=== PATIENT | male | born 2000 | race Caucasian/White ===

== ENCOUNTER 2023-03-09 12:34 | Inpatient (IN) | payer MEDICAID, OTHER ==
[~2023-03-09] VITALS: Ht 175.3 cm; Wt 70.3 kg
[2023-03-09 13:27] LABS: AMMONIA 52 umol/L (11-32); ETHANOL 15 MG/DL (0-10)
[2023-03-09 13:36] LABS: ALANINE AMINOTRANSFERASE 94 U/L (16-63); ALBUMIN 4.5 g/dL (3.4-5.0); ALKALINE PHOSPHATASE 111 U/L (50-136); ASPARTATE AMINOTRANSFERASE 123 U/L (15-37); BILIRUBIN,DIRECT 0.4 mg/dL (0.0-0.2); BILIRUBIN,TOTAL 1.3 mg/dL (0.2-1.0); CALCIUM 9.5 mg/dL (8.5-10.1); CARBON DIOXIDE 22 mmol/L (21-32); CHLORIDE 104 mmol/L (98-107); CREATININE 1.6 mg/dL (0.6-1.3); GLUCOSE 110 mg/dL (74-106); POTASSIUM 3.6 mmol/L (3.5-5.1); SODIUM SERUM 142 mmol/L (136-145); TOTAL PROTEIN, SERUM 8.2 g/dL (6.4-8.2); UREA NITROGEN, BLOOD 20 mg/dL (7-18)
[2023-03-09 13:41] LABS: ACETAMINOPHEN < 2.0 ug/mL (10-30); THYROID STIMULATING HORMONE 0.328 mIU/mL (0.358-3.740)
[2023-03-09 13:47] LABS: *BILIRUBIN,URIN NEGATIVE (NEGATIVE); *BLOOD, URINE 3+ (NEGATIVE); *CLARITY,URINE CLEAR (CLEAR); *COLOR,URINE YELLOW (YELLOW); *KETONES,URINE TRACE (NEGATIVE); *PROTEIN,URINE 1+ (NEGATIVE); LEUKOCYTE ESTERASE ,URINE NEGATIVE (NEGATIVE); NITRITE, URINE NEGATIVE (NEGATIVE); PH,URINE 5.5 (5.0-8.0); UGLUCOSE NEGATIVE (NEGATIVE)
[2023-03-09 14:06] LABS: BASOPHILS % (AUTO) 0.2 % (0.0-2.0); DIFFERENTIAL COMMENT 0; HEMOGLOBIN 16.3 g/dL (12.5-16.3); LYMPHOCYTES # (AUTO) 0.7 K/uL (0.8-4.8); LYMPHOCYTES % (AUTO) 3.7 % (20.5-51.5); MEAN CORPUSCULAR HEMOGLOBIN 29.2 uug (23.8-33.4); MEAN CORPUSCULAR HGB CONC 33 g/dL (32.5-36.3); MEAN CORPUSCULAR VOLUME 87.6 fL (73.0-96.2); MONOCYTES # (AUTO) 1.6 K/uL (0.1-1.30); MONOCYTES % (AUTO) 8.1 % (0.0-11.0); NEUTROPHILS # (AUTO) 16.9 K/uL (1.8-8.9); PLATELET COUNT (AUTO) 194 K/uL (152-348); WHITE BLOOD COUNT (AUTO) 19.2 K/uL (3.6-10.2)
[2023-03-09 14:12] LABS: *AMPHETAMINE, URINE NEGATIVE (NEGATIVE); *BARBITURATE, URINE NEGATIVE (NEGATIVE); *BENZODIAZEPINE, URINE POSITIVE (NEGATIVE); *CANNABINOID, URINE NEGATIVE (NEGATIVE); *COCCAINE, URINE NEGATIVE (NEGATIVE); *OPIATE, URINE NEGATIVE (NEGATIVE); *PHENCYCLIDINE SCREEN,URINE NEGATIVE (NEGATIVE)
[2023-03-09 14:21] LABS: FENTANYL, URINE NEGATIVE (NEGATIVE)
[2023-03-09 14:37] LABS: BACTERIA,URINE MODERATE /HPF (NONE SEEN); SQUAMOUS EPITHELIAL CELL,UR FEW /HPF (NONE SEEN); WBC,URINE 0-3 /HPF (0-3)
[2023-03-09 14:38] LABS: MUCUS,URINE MODERATE /LPF (0-FEW)
[2023-03-09] MEDS ORDERED: MAGNESIUM HYDROXIDE 30 ML LIQUID UDC PO PRN (18:15)
[2023-03-09] MEDS ORDERED: LORAZEPAM 2 MG/1 ML VIAL IV PRN (18:15)
[2023-03-09] MEDS ORDERED: ONDANSETRON 4 MG/2 ML VIAL IV PRN (18:15)
[2023-03-09] MEDS ORDERED: ACETAMINOPHEN 325 MG TABLET PO PRN (18:15)
[2023-03-09 20:20] VITALS: BP 125/55; TEMP 98.4; O2SAT 96
[2023-03-09] MEDS: MORPHINE SULFATE 2 MG/1 ML DISP.SYRIN IV PRN (22:36)
[2023-03-09] MEDS: ASPIRIN 81 MG TAB.CHEW PO ONE (22:43)
[2023-03-09] MEDS: IV NS 1000 ML 1,000 ML IV PRN ×2 (23:08→23:45)
[2023-03-10] VITALS: BP 119/61; TEMP 98.2; O2SAT 95
[2023-03-10 04:00] VITALS: BP 124/57; TEMP 99.2; O2SAT 96
[2023-03-10] MEDS ORDERED: LORAZEPAM 2 MG/1 ML VIAL IV PRN (05:30)
[2023-03-10 06:04] LABS: BASOPHILS % (AUTO) 0.2 % (0.0-2.0); HEMATOCRIT 42.3 % (36.7-47.1); HEMOGLOBIN 14.5 g/dL (12.5-16.3); LYMPHOCYTES # (AUTO) 1.3 K/uL (0.8-4.8); LYMPHOCYTES % (AUTO) 8.7 % (20.5-51.5); MEAN CORPUSCULAR HEMOGLOBIN 29.6 uug (23.8-33.4); MEAN CORPUSCULAR HGB CONC 34 g/dL (32.5-36.3); MEAN CORPUSCULAR VOLUME 86.5 fL (73.0-96.2); MONOCYTES # (AUTO) 1.5 K/uL (0.1-1.30); MONOCYTES % (AUTO) 9.9 % (0.0-11.0); NEUTROPHILS # (AUTO) 12.4 K/uL (1.8-8.9); NEUTROPHILS % (AUTO) 81.2 % (38.5-71.5); PLATELET COUNT (AUTO) 168 K/uL (152-348); RED BLOOD CELL COUNT(AUTO) 4.89 MIL/uL (4.06-5.63); RED CELL DISTRIBUTION WIDTH 13.7 % (12.1-16.2); WHITE BLOOD COUNT (AUTO) 15.2 K/uL (3.6-10.2)
[2023-03-10 06:26] LABS: DIFFERENTIAL COMMENT 1
[2023-03-10 06:32] LABS: ALANINE AMINOTRANSFERASE 126 U/L (16-63); ALBUMIN 3.5 g/dL (3.4-5.0); ALKALINE PHOSPHATASE 77 U/L (50-136); ASPARTATE AMINOTRANSFERASE 518 U/L (15-37); BILIRUBIN,DIRECT 0.3 mg/dL (0.0-0.2); BILIRUBIN,TOTAL 1.3 mg/dL (0.2-1.0); CALCIUM 8.5 mg/dL (8.5-10.1); CARBON DIOXIDE 25 mmol/L (21-32); CHLORIDE 104 mmol/L (98-107); CHOLESTEROL 120 mg/dL (<200); CREATININE 1.6 mg/dL (0.6-1.3); GLUCOSE 132 mg/dL (74-106); HDL CHOLESTEROL 54 mg/dL (40-60); MAGNESIUM 2.1 mg/dL (1.8-2.4); POTASSIUM 4.2 mmol/L (3.5-5.1); SODIUM SERUM 137 mmol/L (136-145); TOTAL PROTEIN, SERUM 6.6 g/dL (6.4-8.2); TRIGLYCERIDES 61 MG/DL (30-150); UREA NITROGEN, BLOOD 26 mg/dL (7-18)
[2023-03-10] MEDS: FOLIC ACID 1 MG TABLET PO ONE (09:36)
[2023-03-10] MEDS: THIAMINE HCL 100 MG TABLET PO ONE (09:36)
[2023-03-10 09:39] LABS: CREATINE KINASE, TOTAL > 14000 U/L (39-308)
[2023-03-10 14:11] LABS: FREE T4 (FREE THYROXINE) 1.07 ng/dL (0.76-1.46)
[2023-03-10] MEDS: levETIRAcetam 500 MG TABLET PO ONE (14:15)
[2023-03-10 14:24] LABS: FREE T4 (FREE THYROXINE) 1.35 ng/dL (0.76-1.46)
[2023-03-10 15:17] VITALS: BP 120/50; TEMP 98.5; O2SAT 100
[2023-03-10 16:00] VITALS: BP 128/94; TEMP 98.4; O2SAT 100
[2023-03-10 20:00] VITALS: BP 120/68; TEMP 98.4; O2SAT 100
[2023-03-10] MEDS: levETIRAcetam 500 MG TABLET PO SCH (21:03)
[2023-03-11] VITALS: BP 127/68; TEMP 98.7; O2SAT 100
[2023-03-11 04:00] VITALS: BP 122/68; TEMP 98.7; O2SAT 100
[2023-03-11 07:31] LABS: BASOPHILS % (AUTO) 0.3 % (0.0-2.0); DIFFERENTIAL COMMENT 1; EOSINOPHILS # (AUTO) 0.1 K/uL (0.0-0.7); EOSINOPHILS % (AUTO) 0.8 % (0.0-7.0); HEMATOCRIT 34.5 % (36.7-47.1); HEMOGLOBIN 11.8 g/dL (12.5-16.3); LYMPHOCYTES # (AUTO) 1.4 K/uL (0.8-4.8); LYMPHOCYTES % (AUTO) 17.8 % (20.5-51.5); MEAN CORPUSCULAR HEMOGLOBIN 29.7 uug (23.8-33.4); MEAN CORPUSCULAR HGB CONC 34 g/dL (32.5-36.3); MEAN CORPUSCULAR VOLUME 86.6 fL (73.0-96.2); MONOCYTES # (AUTO) 0.6 K/uL (0.1-1.30); MONOCYTES % (AUTO) 7.8 % (0.0-11.0); NEUTROPHILS # (AUTO) 5.6 K/uL (1.8-8.9); NEUTROPHILS % (AUTO) 73.3 % (38.5-71.5); PLATELET COUNT (AUTO) 128 K/uL (152-348); RED BLOOD CELL COUNT(AUTO) 3.98 MIL/uL (4.06-5.63); RED CELL DISTRIBUTION WIDTH 13.6 % (12.1-16.2); WHITE BLOOD COUNT (AUTO) 7.6 K/uL (3.6-10.2)
[2023-03-11 07:36] LABS: ALANINE AMINOTRANSFERASE 153 U/L (16-63); ALBUMIN 2.7 g/dL (3.4-5.0); ALKALINE PHOSPHATASE 61 U/L (50-136); ASPARTATE AMINOTRANSFERASE 681 U/L (15-37); BILIRUBIN,DIRECT 0.2 mg/dL (0.0-0.2); BILIRUBIN,TOTAL 0.7 mg/dL (0.2-1.0); CALCIUM 7.8 mg/dL (8.5-10.1); CARBON DIOXIDE 28 mmol/L (21-32); CHLORIDE 111 mmol/L (98-107); GLUCOSE 111 mg/dL (74-106); MAGNESIUM 1.8 mg/dL (1.8-2.4); PHOSPHOROUS 2.7 mg/dL (2.5-4.9); SODIUM SERUM 141 mmol/L (136-145); TOTAL PROTEIN, SERUM 5.1 g/dL (6.4-8.2); UREA NITROGEN, BLOOD 14 mg/dL (7-18)
[2023-03-11 08:18] VITALS: BP 129/72; TEMP 98.7; O2SAT 100
[2023-03-11 08:19] LABS: CREATINE KINASE, TOTAL > 14000 U/L (39-308)
[2023-03-11 11:06] VITALS: BP 111/61; TEMP 98.1; O2SAT 98
[2023-03-11 11:12] LABS: HEPATITIS B CORE AB, IgM Negative (Negative); HEPATITIS B CORE AB, TOTAL Negative (Negative); HEPATITIS B SURFACE AB, QUAL Non Reactive (.); HEPATITIS C VIRUS ANTIBODY Non Reactive (Non Reactive)
[2023-03-11] MEDS ORDERED: BENZOCAINE/MENTH/CETYLPYRD LOZENGE MM PRN (13:30)
[2023-03-11 14:35] VITALS: BP 123/70; TEMP 98; O2SAT 98
[2023-03-11 20:24] VITALS: BP 113/70; TEMP 98.3; O2SAT 100
[2023-03-12 06:48] VITALS: BP 114/54; TEMP 98; O2SAT 98
[2023-03-12 10:18] LABS: BASOPHILS % (AUTO) 0.3 % (0.0-2.0); EOSINOPHILS # (AUTO) 0.1 K/uL (0.0-0.7); HEMATOCRIT 35.2 % (36.7-47.1); HEMOGLOBIN 11.9 g/dL (12.5-16.3); LYMPHOCYTES # (AUTO) 1.5 K/uL (0.8-4.8); LYMPHOCYTES % (AUTO) 25.6 % (20.5-51.5); MEAN CORPUSCULAR HEMOGLOBIN 29.7 uug (23.8-33.4); MEAN CORPUSCULAR HGB CONC 34 g/dL (32.5-36.3); MEAN CORPUSCULAR VOLUME 87.8 fL (73.0-96.2); MONOCYTES # (AUTO) 0.4 K/uL (0.1-1.30); MONOCYTES % (AUTO) 7.7 % (0.0-11.0); NEUTROPHILS # (AUTO) 3.8 K/uL (1.8-8.9); NEUTROPHILS % (AUTO) 64.4 % (38.5-71.5); PLATELET COUNT (AUTO) 132 K/uL (152-348); RED BLOOD CELL COUNT(AUTO) 4.01 MIL/uL (4.06-5.63); RED CELL DISTRIBUTION WIDTH 13.5 % (12.1-16.2); WHITE BLOOD COUNT (AUTO) 5.8 K/uL (3.6-10.2)
[2023-03-12 10:45] LABS: DIFFERENTIAL COMMENT 1
[2023-03-12 11:03] LABS: ALANINE AMINOTRANSFERASE 204 U/L (16-63); ALBUMIN 2.8 g/dL (3.4-5.0); ALKALINE PHOSPHATASE 63 U/L (50-136); ASPARTATE AMINOTRANSFERASE 713 U/L (15-37); BILIRUBIN,TOTAL 0.9 mg/dL (0.2-1.0); CALCIUM 8.2 mg/dL (8.5-10.1); CARBON DIOXIDE 27 mmol/L (21-32); CHLORIDE 110 mmol/L (98-107); GLUCOSE 99 mg/dL (74-106); POTASSIUM 3.9 mmol/L (3.5-5.1); SODIUM SERUM 143 mmol/L (136-145); TOTAL PROTEIN, SERUM 5.5 g/dL (6.4-8.2); UREA NITROGEN, BLOOD 5 mg/dL (7-18)
[2023-03-12 11:10] VITALS: BP 148/55; TEMP 98.1; O2SAT 98
[2023-03-12 11:11] LABS: CREATINE KINASE, TOTAL > 14000 U/L (39-308)
[2023-03-12 16:00] VITALS: BP 125/76; TEMP 98.3; O2SAT 98
[2023-03-12 20:00] VITALS: BP 118/66; TEMP 98; O2SAT 98
[2023-03-13 04:00] VITALS: BP 119/68; TEMP 98.2; O2SAT 97
[2023-03-13 08:12] LABS: BASOPHILS % (AUTO) 0.5 % (0.0-2.0); EOSINOPHILS # (AUTO) 0.1 K/uL (0.0-0.7); EOSINOPHILS % (AUTO) 2.3 % (0.0-7.0); HEMATOCRIT 34.8 % (36.7-47.1); LYMPHOCYTES # (AUTO) 1.9 K/uL (0.8-4.8); LYMPHOCYTES % (AUTO) 32.1 % (20.5-51.5); MEAN CORPUSCULAR HEMOGLOBIN 29.8 uug (23.8-33.4); MEAN CORPUSCULAR HGB CONC 35 g/dL (32.5-36.3); MEAN CORPUSCULAR VOLUME 86.3 fL (73.0-96.2); MONOCYTES # (AUTO) 0.5 K/uL (0.1-1.30); NEUTROPHILS # (AUTO) 3.4 K/uL (1.8-8.9); NEUTROPHILS % (AUTO) 57.1 % (38.5-71.5); PLATELET COUNT (AUTO) 136 K/uL (152-348); RED BLOOD CELL COUNT(AUTO) 4.03 MIL/uL (4.06-5.63); RED CELL DISTRIBUTION WIDTH 13.4 % (12.1-16.2)
[2023-03-13 08:17] LABS: CARBON DIOXIDE 26 mmol/L (21-32); CHLORIDE 109 mmol/L (98-107); CREATININE 0.9 mg/dL (0.6-1.3); DIFFERENTIAL COMMENT 1; GLUCOSE 93 mg/dL (74-106); MAGNESIUM 1.5 mg/dL (1.8-2.4); POTASSIUM 3.4 mmol/L (3.5-5.1); SODIUM SERUM 143 mmol/L (136-145); UREA NITROGEN, BLOOD 7 mg/dL (7-18)
[2023-03-13 09:11] LABS: CREATINE KINASE, TOTAL > 14000 U/L (39-308)
[2023-03-13] MEDS: MAGNESIUM SULFATE/D5W 100 ML IV SCH ×2 (09:46→09:47)
[2023-03-13] MEDS: POTASSIUM CHLORIDE 20 MEQ POWDER PACKET PO ONE (09:46)
[2023-03-13 11:57] VITALS: BP 120/62; TEMP 97.7; O2SAT 98
[2023-03-13 16:00] VITALS: BP 121/69; TEMP 97.9; O2SAT 100
[2023-03-13 20:36] VITALS: BP 111/48; TEMP 97.9; O2SAT 99
[2023-03-14 05:48] VITALS: BP 117/64; TEMP 98.4; O2SAT 98
[2023-03-14 07:59] LABS: BASOPHILS % (AUTO) 0.6 % (0.0-2.0); EOSINOPHILS # (AUTO) 0.2 K/uL (0.0-0.7); EOSINOPHILS % (AUTO) 3.4 % (0.0-7.0); HEMATOCRIT 35.8 % (36.7-47.1); HEMOGLOBIN 12.5 g/dL (12.5-16.3); LYMPHOCYTES # (AUTO) 1.7 K/uL (0.8-4.8); LYMPHOCYTES % (AUTO) 30.3 % (20.5-51.5); MEAN CORPUSCULAR HEMOGLOBIN 29.9 uug (23.8-33.4); MEAN CORPUSCULAR HGB CONC 35 g/dL (32.5-36.3); MEAN CORPUSCULAR VOLUME 85.8 fL (73.0-96.2); MONOCYTES # (AUTO) 0.4 K/uL (0.1-1.30); MONOCYTES % (AUTO) 7.3 % (0.0-11.0); NEUTROPHILS # (AUTO) 3.3 K/uL (1.8-8.9); NEUTROPHILS % (AUTO) 58.4 % (38.5-71.5); PLATELET COUNT (AUTO) 148 K/uL (152-348); RED BLOOD CELL COUNT(AUTO) 4.17 MIL/uL (4.06-5.63); RED CELL DISTRIBUTION WIDTH 13.4 % (12.1-16.2); WHITE BLOOD COUNT (AUTO) 5.7 K/uL (3.6-10.2)
[2023-03-14 08:07] LABS: DIFFERENTIAL COMMENT 1
[2023-03-14 08:34] LABS: CREATININE 0.9 mg/dL (0.6-1.3); MAGNESIUM 1.6 mg/dL (1.8-2.4); PHOSPHOROUS 3.7 mg/dL (2.5-4.9); POTASSIUM 3.4 mmol/L (3.5-5.1)
[2023-03-14] MEDS: POTASSIUM CHLORIDE 20 MEQ TAB.PRT.SR PO ONE (09:22)
[2023-03-14 11:31] VITALS: BP 111/69; TEMP 98.1; O2SAT 99
[2023-03-14] MEDS: MAGNESIUM OXIDE 400 MG TABLET PO ONE (13:32)
[2023-03-14 15:40] VITALS: BP 110/75; TEMP 98.2; O2SAT 100
[2023-03-14 20:00] VITALS: BP 116/57; TEMP 98.4; O2SAT 98
[2023-03-15 04:00] VITALS: BP 121/59; TEMP 98.1; O2SAT 98
[2023-03-15] MEDS ORDERED: LORAZEPAM 2 MG/1 ML VIAL IV PRN (06:45)
[2023-03-15] MEDS: ENSURE ENLIVE (VAN) 240 ML LIQUID PO SCH (08:38)
[2023-03-15 11:17] VITALS: BP 118/60; TEMP 98.1
[2023-03-15 20:00] VITALS: BP 108/55; TEMP 98
[2023-03-15] MEDS: LORAZEPAM 1 MG TABLET PO PRN (20:38)
[2023-03-16 04:00] VITALS: BP 110/59; TEMP 98.2
[2023-03-16 07:40] LABS: CALCIUM 8.3 mg/dL (8.5-10.1); CREATININE 0.9 mg/dL (0.6-1.3); POTASSIUM 3.5 mmol/L (3.5-5.1)
[2023-03-16] MEDS ORDERED: LEVE500T9 PO (10:29)
[2023-03-16 11:37] VITALS: BP 123/67; TEMP 98.2; O2SAT 98
[2023-03-16 15:32] VITALS: BP 109/54; TEMP 98.5; O2SAT 99
== END 2023-03-16 15:30 | disposition home or self-care (01) | DRG 53 ==
LOC: ER 12:34 → TELE3 20:31 → MEDSURG3 03-11 10:40
PROVIDERS: ADMIT Nurse Practitioner Acute Care; ATTEND Nurse Practitioner Acute Care
DX: R56.9 Unspecified convulsions (principal); N17.0 Acute kidney failure with tubular necrosis; I21.A1 Myocardial infarction type 2; E72.20 Disorder of urea cycle metabolism, unspecified; E87.20 Acidosis, unspecified; M62.82 Rhabdomyolysis; K70.9 Alcoholic liver disease, unspecified; E86.0 Dehydration; R94.6 Abnormal results of thyroid function studies; D72.829 Elevated white blood cell count, unspecified; F17.210 Nicotine dependence, cigarettes, uncomplicated; F10.10 Alcohol abuse, uncomplicated; Z82.0 Family history of epilepsy and other diseases of the nervous system; F41.9 Anxiety disorder, unspecified
CPT/HCPCS: 36415; 70450; 71045; 76770; 83605; 83735; 84100; 84443; 84480; 84484; 85025; 85730; 86704; 86705; 86706; 86803; 93005; 93307; G0378; G0480; J2270; J3475; J7040